=== PATIENT | female | born 1970 | race Caucasian/White ===

== ENCOUNTER → 2020-01-20 15:06 | Outpatient (CLI) | payer BC, OTHER, SELFPAY ==
--- NOTE | ~2020-01-20 | MM_ITS ---
EXAMINATION: MM screening [facility] HISTORY: Screening mammogram TECHNIQUE: Craniocaudal and mediolateral oblique 3-D tomosynthesis images were obtained and synthetic 2-D images were generated. CAD analysis was submitted and interpreted. COMPARISON: 02/14/2018, 06/09/2014, 04/05/2013 BREAST PARENCHYMAL COMPOSITION: The breasts are heterogeneously dense, which may obscure small masses . FINDINGS: There is no evidence of suspicious mass, calcification, or architectural distortion to sugg est malignancy in either breast. There has been no suspicious interval change. IMPRESSION: 1. No mammographic evidence of malignancy. 2. Recommend routine screening mammography in one year. BI-RADS Category 1: Negative Reviewed, dictated and finalized at location A. T RELATIONS RECEPTIONIST
== END ==
PROVIDERS: PCP Internal Medicine; Visit Provider Nurse Practitioner
DX: Z12.31 Encounter for screening mammogram for malignant neoplasm of breast (principal)
CPT/HCPCS: 77063; 77067

== ENCOUNTER → 2021-02-15 13:09 | Outpatient (CLI) | payer BC, SELFPAY ==
--- NOTE | ~2021-02-15 | MM_ITS ---
EXAMINATION: MM screening [facility] BI w aakash HISTORY: Screening TECHNIQUE: Craniocaudal and mediolateral oblique 3-D tomosynthesis images were obtained and synthetic 2-D images were generated. CAD analysis was submitted and interpreted. COMPARISON: Comparison to multiple prior studies sequentially, with oldest reviewed study dated 04/2014. BREAST PARENCHYMAL COMPOSITION: The breasts are heterogeneously dense, which may obscure small masses . FINDINGS: There is no evidence of suspicious mass, calcification, or architectural distortion to sugg est malignancy in either breast. There has been no suspicious interval change. IMPRESSION: 1. No mammographic evidence of malignancy. 2. Recommend routine screening mammography in one year. BI-RADS Category 1: Negative Reviewed, dictated and finalized at location A. H INSPECTOR
== END ==
PROVIDERS: Visit Provider Nurse Practitioner
DX: Z12.31 Encounter for screening mammogram for malignant neoplasm of breast (principal)
CPT/HCPCS: 77063; 77067

== ENCOUNTER → 2021-09-27 09:02 | Outpatient (CLI) | payer BC, SELFPAY ==
--- NOTE | ~2021-09-27 | XR_ITS ---
XR knee RT 3V DATE: 09/27/2021 09:27 INDICATION: Right knee effusion TECHNIQUE: [place] and standing AP and lateral views COMPARISON: None FINDINGS: There is mild to moderate suprapatellar knee joint effusion. Osteopenia. There is severe narrowing and mild particular spurring at the medial compartment. No fracture, dislocation, periosteal reaction or bone destruction. No radiopaque intra-articular loos e body or chondrocalcinosis. IMPRESSION: Moderate knee joint effusion Severe medial compartment osteoarthritis Reviewed, dictated and finalized at location B.
== END ==
PROVIDERS: PCP Internal Medicine; Visit Provider Nurse Practitioner
DX: M25.461 Effusion, right knee (principal); M17.11 Unilateral primary osteoarthritis, right knee
CPT/HCPCS: 73562

== ENCOUNTER 2023-05-23 10:45 | Outpatient (CLI) | payer OTHER, SELFPAY ==
--- NOTE | ~2023-05-23 | MM_ITS ---
EXAMINATION: MM screening [facility] BI w aakash HISTORY: Screening mammogram TECHNIQUE: Craniocaudal and mediolateral oblique 3-D tomosynthesis images were obtained and synthetic 2-D images were generated. CAD analysis was submitted and interpreted. COMPARISON: 02/15/2021, 01/20/2020 bilateral screening mammogram examinations BREAST PARENCHYMAL COMPOSITION: The breasts are heterogeneously dense, which may obscure small masses . FINDINGS: There is no evidence of suspicious mass, calcification, or architectural distortion to sugg est malignancy in either breast. There has been no suspicious interval change. IMPRESSION: 1. No mammographic evidence of malignancy. 2. Recommend routine screening mammography in one year. BI-RADS Category 1: Negative Reviewed, dictated and finalized at location A.
== END 2023-05-23 10:46 ==
PROVIDERS: PCP Family Medicine; Visit Provider Obstetrics & Gynecology Gynecology
DX: Z12.31 Encounter for screening mammogram for malignant neoplasm of breast (principal); Z13.6 Encounter for screening for cardiovascular disorders
CPT/HCPCS: 77063; 77067

== ENCOUNTER 2023-07-28 07:03 | Outpatient (CLI) | payer OTHER, SELFPAY ==
--- NOTE | ~2023-07-28 | XR_ITS ---
Lumbosacral Spine: AP and lateral views Clinical History: Pain Findings: The normal lordotic curve is maintained. The vertebral bodies and posterior elements are i ntact. The intervertebral disc spaces are preserved. There is moderate to advanced facet arthropathy from L3 through S1. The sacroiliac joints are normally outlined. Impression: Facet arthropathy, as above. Reviewed, dictated and finalized at location . Impression: Facet arthropathy, as above.
--- NOTE | ~2023-07-28 | XR_ITS ---
Right Knee Technique: AP, lateral, and sunrise views were obtained. Clinical History: Osteoarthritis Findings: No fracture or dislocation is seen. There is medial compartment narrowing with medial joint line osteophyte formation. There is minimal patellar spurring and minimal intercondylar notch spurri ng. Soft tissues are unremarkable. No joint effusion is seen. Impression: Degenerative change, as above, worst in the medial compartment. Reviewed, dictated and finalized at location M. Impression: Degenerative change, as above, worst in the medial compartment.
--- NOTE | ~2023-07-28 | XR_ITS ---
AP and lateral views of the bilateral hips Clinical history: Pain Findings: No acute fracture or dislocation is seen. Osseous alignment is anatomic. Minimal degenerati ve change of both hips noted. Soft tissues are unremarkable. Impression: Minimal degenerative change of both hips. Reviewed, dictated and finalized at location . Impression: Minimal degenerative change of both hips.
== END 2023-07-28 07:04 ==
PROVIDERS: PCP Family Medicine; Visit Provider Nurse Practitioner Family
DX: M54.41 Lumbago with sciatica, right side (principal); M17.11 Unilateral primary osteoarthritis, right knee; M47.897 Other spondylosis, lumbosacral region; M16.0 Bilateral primary osteoarthritis of hip
CPT/HCPCS: 72100; 73521; 73564

== ENCOUNTER 2023-09-05 07:53 | Outpatient (RCR) | payer OTHER, SELFPAY ==
--- NOTE | 2023-09-05 09:04 | OPREHPOC ---
Outpatient Therapy Plan of Care This is a Multidisciplinary Plan of Care that may contain components documented by all disciplines (PT, OT, and ST.) PT Problem 1 PT Problem #1 Knowledge Deficit PT Goal 1 Goal *indep with HEP * correct body mechanics and position with exercises Target Visit 8 PT Problem 2 PT Problem #2 Pain PT Goal 1 Goal 1* decrease pain rating at worst to 3/10 2* self assessment Oswestry rating of 18% limitation in activity 3* pt report with sleeping awaken 1x/night due to pain Target Visit 8 PT Problem 3 PT Problem #3 Impaired Strength PT Goal 1 Goal increase trunk and hip strength to improve stability to spine and body mechanics with activities 1* pt perform 20 reps of mat strengthening exercises 2* pt perform 15 reps of sitting ball exercises with good stability 3* pt perform bilateral UE box lift from waist/ floor height 20# with good technique Target Visit 8
--- NOTE | 2023-09-05 09:04 | PTOPEVAL1 ---
Assessment and note entered by Madiha Adan, PT Evaluation Information Assessment Status Evaluation Diagnosis low back pain, R knee pain Onset Mar 2023 Subjective Information gradual increase in back, both hips and R Knee pain; no trauma or injury; feel have started menopause and things are changing; have not had PT for her back; X rays: hips- mild degenerative changes bilateral; R knee medial compartment narrowing, osteophyte formation and minimal patellar spur; lumbar moderate to advanced facet arthropathy L 3 to S1; Activity: due to pain, is not doing fitness activity, but does some stretching; previously was a runner, but not ran for 2-3 years due to knee pain; 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 History includes chronic R knee pain with 2 arthroscopies. X ray reports show changes of R knee, both hips and lumbar spine. She has decreased activity level due to pain and self assessment Oswestry is 26% limitation in activity level. With the evaluation: she has weakness over trunk and hip extension; decreased trunk extension and R piriformis flexibility; postural changes with R knee, weight shift to L and R hip elevated; flat lumbar spine. Skilled PT services are indicated for modalities to decrease pain, therapeutic exercises and education for posture, pain control and HEP. Plan of Care Interventions Electrical Stimulation,Hot Pack/Cold Pack,Manual Therapy,Mechanical Traction,Neuro Re-education, Patie
--- NOTE | 2023-10-13 10:49 | PTOPDC ---
Assessment and note entered by Madiha Adan, PT Discharge Report Assessment Status Discharge - Pt Not Present Diagnosis low back pain, R knee pain Onset Mar 2023 Subjective Information pt was not seen this date. Assessment PT Clinical Summary Gifty received the PT evaluation on September 04 and did not return for any further treatment. Therefore, she will be discharged at this time. The goals were not addressed. Plan of Care PT Services Indicated No
== END 2023-10-13 13:34 | disposition home or self-care (01) ==
LOC: ANHPT 07:53
PROVIDERS: PCP Family Medicine; Visit Provider Nurse Practitioner Family
DX: M54.41 Lumbago with sciatica, right side (principal); G89.29 Other chronic pain; M17.11 Unilateral primary osteoarthritis, right knee
CPT/HCPCS: 97110; 97161; 97530

== ENCOUNTER 2024-02-25 06:38 | Day surgery (SDC) | payer OTHER, SELFPAY ==
[2024-01-07 08:54] VITALS: BMI 23.8
[2024-02-02 13:03] VITALS: BMI 25.0
--- NOTE | 2024-02-25 06:48 | WPDANESEPPF ---
Anes - Initial Pre Proc Eval Procedure: Operation Date: 02/25/24 08:30 Proposed Procedures p Screening Colonoscopy - Lukasz Connolly MD Date/Time: 02/25/24 06:48 Surgeon: Lukasz Connolly MD Pre Op Diagnosis: Neoplasm Screening Patient Data Age: 53 Gender: F Height: 1.63 m Weight: 66 kg Allergies Allergy/AdvReac Type Severity Reaction Status Date / Time No Known Allergies Allergy Mild Verified 02/25/24 07:11 Home Medications ?Medication ?Instructions ?Recorded ?Confirmed ?Type estradiol-norethindrone acet 0.5 1 tablet PO DAILY 01/20/24 02/25/24 History mg-0.1 mg tablet Patient hx anesthesia problems: none Family hx anesthesia problems: none Results Review: All pre-operative results and documents have been reviewed as part of the pre-operative evaluation. [facility] Past Medical History Medical History (Updated 02/25/24 @ 07:29 by Lukasz Connolly MD) Asthma Joint pain Surgical History Surgical History History of knee surgery right Family History Family History Mother Family history of lung cancer, Onset Age: 57 Father Family history of congestive heart failure Social History Social History Smoking status: Former smoker Second hand tobacco smoke exposure: No Alcohol intake: current Substance use type: does not use Do You Feel Safe in your Home?: Yes Lack of Transportation: No Lack of Food: Never True Current Housing: I Have Housing Concerned About Future Housing: No Difficulty Paying Gas/Electric Bills: No Difficulty Paying for Meds: No Currently Unemployed: No Education: Associate Degree Difficulty w/ Childcare or Family Care: No Living arrangements: with family Occupation/Education: occupation Additional occupation/education comments: works from home Gender identity (if verbalized by the patient): Female Anes - Eval Final PreProcedure Day of Procedure 02/25/24 06:48 Patient weight: normal Heart: regular rate and rhythm Lungs: clear to auscultation and normal air movement Airway: Mallampati scale class II Neurological: alert and oriented Last oral intake: >/= 8 hours ASA classification: II Emergent: no Anesthetic plan: proceed Anesthesia type and monitoring: general GIVS and standard monitoring Results Review: All pre-operative results and documents have been reviewed as part of the pre-operative evaluation. Informed Consent: The patient's anesthetic plan and its attendant risks and benefits were discussed with the patient/family/POA. Questions were solicited and answers provided to the satisfaction of the patient/family/POA.
[2024-02-25 07:12] VITALS: BP 115/82; PULSE 76; RESP 15; TEMP 36.8; O2SAT 100
[2024-02-25] MEDS: LACTATED RINGERS 1,000 ML 150 ML IV CONT (07:21)
--- NOTE | 2024-02-25 07:28 | P.HP_ITS ---
History of Present Illness History of Present Illness Consent: Risks, benefits, and alternatives have been discussed and questions answered. Patient agrees to proceed with procedure. Chief complaint: Neoplasm Screening Narrative: Gifty Mclain is a 53 year old female presents for screening colonoscopy. Patient's current weight appetite and bowel movements are normal. Patient denies abdominal pain. She has had no bleeding. Family history is noncontribu tory. Review of Systems Review of Systems: All systems reviewed & are unremarkable except as noted in HPI and below PMFSH Past Medical History Medical History (Updated 02/25/24 @ 07:29 by Lukasz Connolly MD) Asthma Joint pain Surgical History Surgical History History of knee surgery right Family History Family History Mother Family history of lung cancer, Onset Age: 57 Father Family history of congestive heart failure Social History Social History Smoking status: Former smoker Second hand tobacco smoke exposure: No Alcohol intake: current Substance use type: does not use Do You Feel Safe in your Home?: Yes Lack of Transportation: No Lack of Food: Never True Current Housing: I Have Housing Concerned About Future Housing: No Difficulty Paying Gas/Electric Bills: No Difficulty Paying for Meds: No Currently Unemployed: No Education: Associate Degree Difficulty w/ Childcare or Family Care: No Living arrangements: with family Occupation/Education: occupation Additional occupation/education comments: works from home Gender identity (if verbalized by the patient): Female Meds Home Medications and Allergies Home Medications ?Medication ?Instructions ?Recorded ?Confirmed ?Type estradiol-norethindrone acet 0.5 1 tablet PO DAILY 01/20/24 02/25/24 History mg-0.1 mg tablet Allergies Allergy/AdvReac Type Severity Reaction Status Date / Time No Known Allergies Allergy Mild Verified 02/25/24 07:11 Vital Signs Vital Signs - 24 hr 02/25/24 07:12 Temperature 98.3 F Pulse Rate 76 Respiratory Rate 15 Blood Pressure 115/82 Pulse Oximetry 100 Oxygen Delivery Room Air Exam Narrative: Physical exam reveals patient to be alert signs stable. HEENT exam is unremarkable. Patient is anicteric. Lungs are clear to auscultation and percussion. heart is without murmur or extra sounds. Abdominal bowel sounds are present soft nontender with no organomegaly. Digital external rectal exam is normal. Assessment and Plan Assessment and plan (1) Encounter for screening colonoscopy: Code(s): Z12.11 - Encounter for screening for malignant neoplasm of colon Status: Acute Assessment and Plan: Patient presents today for screening colonoscopy. She appears to be at average risk for colon polyps. Further recommendations may be given after endoscopy
[2024-02-25 09:00] VITALS: BP 95/71; PULSE 74; RESP 15; O2SAT 100
[2024-02-25 09:10] VITALS: BP 96/77; PULSE 79; RESP 14; O2SAT 100
[2024-02-25 09:20] VITALS: BP 103/71; PULSE 80; RESP 15; O2SAT 99
--- NOTE | 2024-02-25 11:28 | WPDANESPN ---
Anes - Prog Note Post-Op Date/Time: 02/25/24 11:28 Cardiovascular status: normal Respiratory status: normal Airway patency: baseline Mental status: baseline Post-Op hydration status: normal Vital Signs: Last Vital Signs Temp 36.8 C 02/25/24 07:12 Pulse 80 02/25/24 09:20 Resp 15 02/25/24 09:20 BP 103/71 02/25/24 09:20 Pulse Ox 99 02/25/24 09:20 O2 Del Method Room Air 02/25/24 09:20 Pain Score (VAS): 0 I/O: Intake & Output 02/24/24 02/25/24 02/25/24 23:59 07:59 15:59 Intake Total 750 Balance 750 Post-procedural complaints: none Patient Feedback: Patient satisfied with anesthetic care. Other Findings: Patient vital signs back to baseline. Patient denies nausea and vomiting. Patient's pain under control. Patient OK for discharge.
== END 2024-02-25 09:26 | disposition home or self-care (01) ==
PROVIDERS: PCP Family Medicine; Visit Provider Internal Medicine Gastroenterology
PROC: 0DJD8ZZ Inspection of Lower Intestinal Tract, Via Natural or Artificial Opening Endoscopic (ICD-10-PCS; CPT 45378; principal; 2024-02-25 08:30)
DX: Z12.11 Encounter for screening for malignant neoplasm of colon (principal); K64.8 Other hemorrhoids
CPT/HCPCS: 45378

== ENCOUNTER 2024-08-28 11:07 | Outpatient (CLI) | payer OTHER, SELFPAY ==
--- NOTE | ~2024-08-28 | MM_ITS ---
EXAMINATION: MM screening [facility] BI w aakash HISTORY: Screening mammogram TECHNIQUE: Craniocaudal and mediolateral oblique 3-D tomosynthesis images were obtained and synthetic 2-D images were generated. CAD analysis was submitted and interpreted. COMPARISON: No prior mammogram is available for comparison at this institution. BREAST PARENCHYMAL COMPOSITION:Dense: The breasts are heterogeneously dense, which may obscure small masses. FINDINGS: No suspicious mass, calcification, or architectural distortion are identified in either miguel ast to suggest malignancy. There has been no suspicious interval change. IMPRESSION: No mammographic evidence of malignancy. Recommend routine screening mammography in one year. BI-RADS Category 1: Negative Reviewed, dictated and finalized at location .
== END 2024-08-28 11:08 | disposition home or self-care (01) ==
LOC: MICIMG 11:08
PROVIDERS: PCP Obstetrics & Gynecology Gynecology; Visit Provider Family Medicine
DX: Z12.31 Encounter for screening mammogram for malignant neoplasm of breast (principal)
CPT/HCPCS: 77063; 77067